=== PATIENT | male | born 1935 ===

== ENCOUNTER 2022-01-23 22:47 | Inpatient (IN) | payer MEDICARE, OTHER ==
[~2022-01-23] VITALS: Ht 167.6 cm; Wt 51.0 kg
[2022-01-24 00:13] LABS: RED BLOOD COUNT 2.29 M/UL (4.20-5.50); WHITE BLOOD COUNT 7.6 K/UL (4.5-11.0)
[2022-01-24 00:16] LABS: HEMOGLOBIN 6.6 gm/dl (14.0-17.5)
[2022-01-24] MEDS ORDERED: HYDROCODON-ACE1 EAC4 PO ×3 (04:04→04:07)
[2022-01-25 06:05] LABS: HEMOGLOBIN 7.6 gm/dl (14.0-17.5); WHITE BLOOD COUNT 6.4 K/UL (4.5-11.0)
[2022-01-25 06:47] LABS: RED BLOOD COUNT 2.62 M/UL (4.20-5.50)
[2022-01-25] MEDS ORDERED: MULTIVITAMIN1 EACH PO (12:05)
== END 2022-01-27 18:15 | DRG 377 ==
LOC: ER1 22:47 → M/S 01-24 19:02 → CDU 01-24 19:02 → M/S 01-25 08:35
PROVIDERS: Physician Assistant; Student in an Organized Health Care Education/Training Program; ADMIT Internal Medicine
PROC: 30233N1 Transfusion of Nonautologous Red Blood Cells into Peripheral Vein, Percutaneous Approach (ICD-10-PCS; principal; 2022-01-24)
DX: K92.2 Gastrointestinal hemorrhage, unspecified (principal); G93.41 Metabolic encephalopathy; N17.9 Acute kidney failure, unspecified; E44.1 Mild protein-calorie malnutrition; Z68.1 Body mass index [BMI] 19.9 or less, adult; N13.30 Unspecified hydronephrosis; Z20.822 Contact with and (suspected) exposure to COVID-19; Z66 Do not resuscitate; R31.9 Hematuria, unspecified; D64.9 Anemia, unspecified; N40.0 Benign prostatic hyperplasia without lower urinary tract symptoms; M06.9 Rheumatoid arthritis, unspecified; Z51.5 Encounter for palliative care; Z74.01 Bed confinement status; Z85.830 Personal history of malignant neoplasm of bone
CPT/HCPCS: 0240U; 36430; 51702; 70450; 71045; 80048; 80053; 80307; 81001; 82150; 82272; 82550; 82553; 83690; 84484; 85025; 86850; 86900; 86901; 86920; 87040; 87077; 87086; 87186; 93005; 96374; 96375; 99285; C9113; G0378; J0692; J0696; J2060; J2270; J7040; P9016